=== PATIENT | male | born 1980 | race Two or more races ===

== ENCOUNTER 2021-02-16 10:28 | Emergency (ER) | payer OTHER ==
[~2021-02-16] VITALS: Ht 182.9 cm; Wt 120.2 kg
[2021-02-16 11:34] VITALS: BP 135/82
== END 2021-02-16 12:39 | disposition home or self-care (01) ==
LOC: ER 10:28
DX: S50.02XA Contusion of left elbow, initial encounter (principal); W21.09XA Struck by other hit or thrown ball, initial encounter; Y93.89 Activity, other specified; Y92.89 Other specified places as the place of occurrence of the external cause; Y99.8 Other external cause status
CPT/HCPCS: 73060; 73080